=== PATIENT | male | born 1955 | race Caucasian/White ===

== ENCOUNTER 2017-08-31 10:04 | Emergency (ER) | payer OTHER ==
[~2017-08-31] VITALS: Ht 185.4 cm; Wt 93.2 kg
[2017-08-31] MEDS ORDERED: DOXE2.5C4 PO (10:18)
[2017-08-31] MEDS ORDERED: CHOL400C11 PO (10:18)
[2017-08-31] MEDS ORDERED: ATEN25TA PO (10:18)
[2017-08-31] MEDS ORDERED: ACET-1770 PO (10:18)
[2017-08-31] MEDS ORDERED: FURO20TA3 PO (10:18)
[2017-08-31] MEDS ORDERED: DIVA-68 PO (10:18)
[2017-08-31] MEDS ORDERED: AMLO10TA2 PO (10:18)
[2017-08-31] MEDS ORDERED: SODIUM CHLORIDE FLUSH 10ML SYR IVF ONE (10:30)
[2017-08-31 10:48] LABS: BASOPHILS # (AUTO) 0.02 x10^3/uL (0-0.1); BASOPHILS % (AUTO) 0 % (0-1); EOSINOPHILS # (AUTO) 0.12 x10^3/uL (0-0.4); EOSINOPHILS % (AUTO) 2 % (1-7); LYMPHOCYTES % (AUTO) 36 % (22-44); MD NO; MEAN CORPUSCULAR HEMOGLOBIN 30.8 pg (27.5-34.5); MEAN CORPUSCULAR HGB CONC 33.2 g/dL (33.2-36.2); MEAN PLATELET VOLUME 9.2 fL (7.4-10.4); MONOCYTES # (AUTO) 0.73 x10^3/uL (0.2-0.8); MONOCYTES % (AUTO) 11 % (2-9); NEUTROPHILS # (AUTO) 3.29 x10^3/uL (1.8-6.8); NEUTROPHILS % (AUTO) 51 % (42-75); PLATELET COUNT 202 x10^3/uL (130-400); RED BLOOD COUNT 4.34 x10^6/uL (4.38-5.82); RED CELL DISTRIBUTION WIDTH 14.1 % (9.4-14.8)
[2017-08-31 10:54] LABS: ALANINE AMINOTRANSFERASE 29 U/L (12-78); ALBUMIN 3.4 g/dL (3.4-5.0); ANION GAP 5 mmol/L (5-15); CALCIUM 9.4 mg/dL (8.5-10.1); CHLORIDE 115 mmol/L (98-107)
[2017-08-31 10:57] LABS: ALKALINE PHOSPHATASE 80 U/L (45-117); BILIRUBIN,TOTAL 0.5 mg/dL (0.2-1.0); CREATININE 2.67 mg/dL (0.7-1.3); TOTAL PROTEIN 7.5 g/dL (6.4-8.2)
[2017-08-31 11:07] VITALS: BP 143/99
== END 2017-08-31 11:28 | disposition home or self-care (01) ==
LOC: ED 10:13
DX: I12.9 Hypertensive chronic kidney disease with stage 1 through stage 4 chronic kidney disease, or unspecified chronic kidney disease (principal); N18.3 Chronic kidney disease, stage 3 (moderate); I87.2 Venous insufficiency (chronic) (peripheral); F31.9 Bipolar disorder, unspecified
CPT/HCPCS: 36415; 71045; 80053; 85025; 93005; 99285

== ENCOUNTER → 2018-07-24 | Outpatient (CLI) | payer OTHER, MEDICARE ==
[~2018-07-24] MED LIST: ACET-1770 PO; AMLO10TA8 PO; ATEN25TA PO; CHOL400C11 PO; DIVA-61 PO; DOXE2.5C4 PO; FURO20TA3 PO
[2018-07-24 14:18] LABS: CREATININE 3.16 mg/dL (0.7-1.3)
== END | disposition home or self-care (01) ==
LOC: RAD 13:19
PROVIDERS: ATTEND Internal Medicine Endocrinology, Diabetes & Metabolism
DX: K44.9 Diaphragmatic hernia without obstruction or gangrene (principal); K80.20 Calculus of gallbladder without cholecystitis without obstruction; I70.0 Atherosclerosis of aorta; K40.20 Bilateral inguinal hernia, without obstruction or gangrene, not specified as recurrent; M25.78 Osteophyte, vertebrae
CPT/HCPCS: 36415; 71250; 74176; 82565